=== PATIENT | female | born 1980 | race Caucasian/White ===

== ENCOUNTER 2021-07-27 04:41 | Day surgery (SDC) | payer OTHER ==
[2021-07-26 15:30] VITALS: BMI 25.5
[2021-07-27] MEDS ORDERED: CEFAZOLIN 2 GM in DEXTROSE 5%-WATER 100 ML IVPB ONE (07:38)
[2021-07-27] MEDS ORDERED: BUPIVACAINE LIPOSOME/PF (EXPAREL) 266 MG/20 ML VIAL ONE (08:45)
[2021-07-27] MEDS ORDERED: BUPIVACAINE HCL/PF 0.5% (5MG/ML) 10 ML VIAL ONE (08:45)
[2021-07-27 08:49] LABS: HEMATOCRIT 39.3 % (32.4-45.2); MCH 28.9 pg (25.7-33.7); MCHC 33.1 g/dl (32.0-36.0); MEAN CELL VOLUME 87.2 fl (80-96); MEAN PLT VOLUME 7.7 fl (7.5-11.1); PLATELET COUNT 272 10^3/uL (134-434); RBC 4.51 M/mm3 (3.60-5.2); WHITE BLOOD COUNT 4.5 K/mm3 (4.0-10.0)
[2021-07-27] MEDS ORDERED: ceFAZolin SODIUM 1 GM VIAL ONE ×2 (09:31→21:33)
[2021-07-27] MEDS ORDERED: MIDAZOLAM HCL 2 MG/2 ML SINGLE DOSE VIAL ONE ×2 (09:40)
[2021-07-27] MEDS ORDERED: ROCURONIUM BROMIDE 50 MG/5 ML SYRINGE ONE (10:27)
[2021-07-27] MEDS ORDERED: ceFAZolin SODIUM 1 GM VIAL IVPB ONE (10:40)
[2021-07-27] MEDS ORDERED: PROPOFOL 20 ML ONE (10:55)
[2021-07-27] MEDS ORDERED: KETOROLAC TROMETHAMINE 30 MG/1 ML VIAL IVPUSH PRN ×2 (12:27→20:00)
[2021-07-27] MEDS ORDERED: ACETAMINOPHEN 325 MG TABLET (FP) PO PRN (12:27)
[2021-07-27] MEDS ORDERED: SIMETHICONE 80 MG TAB.CHEW (FP) PO PRN (12:27)
[2021-07-27] MEDS ORDERED: oxyCODONE HCL 5 MG TABLET PO PRN (12:27)
[2021-07-27] MEDS ORDERED: BISACODYL 5 MG TABLET.DR (FP) PO PRN (12:27)
[2021-07-27] MEDS ORDERED: ACETAMINOPHEN 1000 MG/100 ML VIAL IVPB PRN (12:27)
[2021-07-27] MEDS ORDERED: ONDANSETRON 4 MG/2 ML VIAL IVPUSH PRN (12:27)
[2021-07-27] MEDS ORDERED: DOCUSATE SODIUM 100 MG CAPSULE (FP) PO PRN (12:27)
[2021-07-27] MEDS ORDERED: NEOSTIGMINE METHYLSULFATE 0.5 MG/ML - 10 ML MDV ONE (13:22)
[2021-07-27] MEDS ORDERED: PROMETHAZINE HCL 25 MG/1 ML VIAL IVPUSH PRN (13:57)
[2021-07-27] MEDS: LACTATED RINGERS SOLUTION 1,000 ML IV SCH ×2 (16:37→23:21)
[2021-07-27] MEDS: CEFAZOLIN 1 GM in DEXTROSE 5%-WATER - 1 GM/50 ML IVPB IVPB SCH ×2 (16:37→23:20)
[2021-07-27 18:35] LABS: HEMATOCRIT 35.8 % (32.4-45.2); HEMOGLOBIN 11.8 GM/dL (10.7-15.3); MCH 28.9 pg (25.7-33.7); MCHC 33.1 g/dl (32.0-36.0); MEAN CELL VOLUME 87.1 fl (80-96); MEAN PLT VOLUME 8.7 fl (7.5-11.1); PLATELET COUNT 236 10^3/uL (134-434); WHITE BLOOD COUNT 13.2 K/mm3 (4.0-10.0)
[2021-07-27] MEDS: ACETAMINOPHEN 1000 MG/100 ML VIAL IVPB SCH (18:50)
[2021-07-27] MEDS ORDERED: DEXTROSE 5%-WATER - 50 ML IVPB ONE (21:33)
[2021-07-28] MEDS: ACETAMINOPHEN 1000 MG/100 ML VIAL IVPB SCH ×2 (01:16→06:48)
[2021-07-28] MEDS ORDERED: IBUPROFEN 600 MG TABLET (FP) PO PRN (08:11)
[2021-07-28 09:14] LABS: HEMATOCRIT 35.6 % (32.4-45.2); HEMOGLOBIN 11.9 GM/dL (10.7-15.3); MCH 29.1 pg (25.7-33.7); MCHC 33.4 g/dl (32.0-36.0); MEAN CELL VOLUME 87.3 fl (80-96); MEAN PLT VOLUME 8.4 fl (7.5-11.1); PLATELET COUNT 252 10^3/uL (134-434); RBC 4.08 M/mm3 (3.60-5.2); RDW 13.9 % (11.6-15.6); WHITE BLOOD COUNT 10.3 K/mm3 (4.0-10.0)
[2021-07-28] MEDS ORDERED: ENOXAPARIN NA (PORCINE) 40 MG/0.4 ML DISP.SYRIN SQ SCH (10:00)
[2021-07-28] MEDS ORDERED: ACETAMINOPHEN 500 MG TABLET (FP) PO PRN ×2 (14:00)
[2021-07-28 16:19] VITALS: BP 99/63; PULSE 63; TEMP 98.4
[2021-07-28] MEDS ORDERED: ACETAMINOPHEN 325 MG TABLET (FP) PO PRN (19:00)
== END 2021-07-28 19:30 | disposition home or self-care (01) ==
LOC: JASUSAT 04:41 → J8W 15:59 → JASUSAT 07-28 19:30
PROVIDERS: ATTEND Specialist
PROC: 0UT74ZZ Resection of Bilateral Fallopian Tubes, Percutaneous Endoscopic Approach (ICD-10-PCS; 2021-07-27)
PROC: 8E0W4CZ Robotic Assisted Procedure of Trunk Region, Percutaneous Endoscopic Approach (ICD-10-PCS; 2021-07-27)
PROC: 0DNW4ZZ Release Peritoneum, Percutaneous Endoscopic Approach (ICD-10-PCS; 2021-07-27)
PROC: 0UT94ZZ Resection of Uterus, Percutaneous Endoscopic Approach (ICD-10-PCS; principal; 2021-07-27 10:00)
DX: D25.9 Leiomyoma of uterus, unspecified (principal); N93.8 Other specified abnormal uterine and vaginal bleeding; N72 Inflammatory disease of cervix uteri; N92.1 Excessive and frequent menstruation with irregular cycle; N99.4 Postprocedural pelvic peritoneal adhesions
CPT/HCPCS: 58573; S2900; 36415; 81025; 85027; 88309-TC; 94010; 94760; J0131